=== PATIENT | female | born 1975 | race Caucasian/White ===

== ENCOUNTER 2017-11-04 14:30 | Emergency (ER) | payer SELFPAY ==
[~2017-11-04] VITALS: Ht 154.9 cm; Wt 73.9 kg
[2017-11-04 14:36] VITALS: BP_SYST 120
[2017-11-04] MEDS ORDERED: NACL 0.9% 1,000 ML IV ONE ×2 (14:41→14:45)
--- NOTE | 2017-11-04 14:42 | NUR ---
Patient to ER bed 7 to gown for evaluation. Side rails up. Report given to Regan FLAHERTY.
--- NOTE | 2017-11-04 14:42 | NUR ---
Note paulineana in ED - 11/04/17 at 1503 by ROSEANN Pt c/o neck pain upon awakening and thinks she may have slept wrong. Pt has a hx of "flare ups" of neck pain x 7 years. Pt denies neck trauma or injury, no neuro deficits noted.
[2017-11-04] MEDS ORDERED: KETOROLAC TROMETHAMINE 30 MG VIAL IVP ONE (14:45)
[2017-11-04] MEDS ORDERED: ONDANSETRON HCL 4 MG/2 ML VIAL IVP ONE (14:45)
--- NOTE | 2017-11-04 14:45 | NUR ---
ER at bedside examining patient.
--- NOTE | 2017-11-04 14:47 | NUR ---
Pt presents to ER c/o low back pain 7/10 on pain scale, nausea & vomiting. Pt reports drinking excessively yesterday at a family birthday libertarian. Pt reports drinking "out of the bottle" all night. Pt in no acute distress, speaking full sentences, AOX4, ambulatory, no active vomiting at the moment; pt denies chest pain or sob.
[2017-11-04 15:00] LABS: BILIRUBIN,URINE NEGATIVE (NEGATIVE); BLOOD, URINE NEGATIVE (NEGATIVE); CLARITY/URINE HAZY (CLEAR); COLOR,URINE YELLOW (YELLOW); GLUCOSE,URINE NEGATIVE (NEGATIVE); KETONES,URINE 1+ (NEGATIVE); LEUKOCYTE ESTERASE ,URINE NEGATIVE (NEGATIVE); NITRITE, URINE NEGATIVE (NEGATIVE); PH,URINE 5.5 (5.0-8.0); PROTEIN URINE TRACE (NEGATIVE); UROBILINOGEN,URINE 0.2 (0.2-1.0)
--- NOTE | 2017-11-04 15:04 | NUR ---
Pt medicated as ordered by Dr. Gracia. Pt tolerated well; will continue to monitor.
[2017-11-04 15:08] LABS: BACTERIA,URINE MODERATE /HPF (None Seen); MUCUS,URINE None Seen /LPF (None Seen); RBC,URINE NONE SEEN /HPF (0-3); URINE AMORPHOUS URATE 3+ /HPF (None Seen); WBC,URINE 0-3 /HPF (0-3)
[2017-11-04 15:24] LABS: BASOPHILS % (AUTO) 0.4 % (0.0-2.0); EOSINOPHILS % (AUTO) 0.4 % (0.0-4.0); HEMOGLOBIN 8.4 g/dL (12.0-16.0); LYMPHOCYTES # (AUTO) 1.6 K/uL (1.0-5.5); LYMPHOCYTES % (AUTO) 13.9 % (20.5-51.5); MEAN CORPUSCULAR HEMOGLOBIN 18 pg (27-31); MEAN CORPUSCULAR HGB CONC 30 % (32-36); MEAN CORPUSCULAR VOLUME 60 fL (79.0-98.0); MONOCYTES # (AUTO) 0.5 K/uL (0.0-1.0); MONOCYTES % (AUTO) 4.6 % (1.7-9.3); NEUTROPHILS # (AUTO) 9.3 K/uL (1.8-7.7); NEUTROPHILS % (AUTO) 80.7 % (40.0-70.0); PLATELET COUNT (AUTO) 403 K/uL (130-430); RED CELL DISTRIBUTION WIDTH 18.8 % (9.0-15.0); WHITE BLOOD COUNT (AUTO) 11.4 K/uL (4.8-10.8)
[2017-11-04 15:27] LABS: ANION GAP 12 (5-15); CALCIUM 8.5 mg/dL (8.4-11.0); CHLORIDE 107 mmol/L (98-107); CREATININE 0.78 mg/dL (0.55-1.30); GLUCOSE 102 mg/dL (70-99); POTASSIUM 3.6 mmol/L (3.5-5.1); SODIUM SERUM 141 mmol/L (136-145); UREA NITROGEN, BLOOD 9 mg/dL (8-21)
[2017-11-04 15:28] LABS: GFR AFRICAN AMERICAN 104 mL/min (>90)
[2017-11-04 15:31] LABS: PROTHROMBIN TIME 10.4 SECS (9.5-12.5)
[2017-11-04 15:33] LABS: ALANINE AMINOTRANSFERASE 16 U/L (12-78); ALBUMIN 3.8 g/dL (3.4-4.8); AMYLASE 47 U/L (0-100); ASPARTATE AMINOTRANSFERASE 13 U/L (10-37); LIPASE 92 U/L (73-393); TOTAL BILIRUBIN 0.3 mg/dL (0.0-1.0)
[2017-11-04 15:35] LABS: ALCOHOL, BLOOD 3 mg/dL (<10)
[2017-11-04 15:36] LABS: ACETAMINOPHEN < 1 ug/mL (1-30)
--- NOTE | 2017-11-04 15:45 | NUR ---
Dr. Gracia at bedside speaking with pt discussing lab and diagnostic results.
[2017-11-04 15:54] VITALS: BP_SYST 142
--- NOTE | 2017-11-04 15:54 | NUR ---
Patient given written and verbal discharge instructions and verbalizes understanding. ER MD discussed with patient the results and treatment provided. Patient in stable condition. ID arm band removed. IV catheter removed intact and dressing applied, no active bleeding. Rx of Ranitidine given. Patient educated on pain management and to follow up with PMD. Pain Scale 3/10. Opportunity for questions provided and answered. Medication side effect fact sheet provided.
== END 2017-11-04 15:54 | disposition home or self-care (01) ==
LOC: SED 14:30
DX: K29.20 Alcoholic gastritis without bleeding (principal); F10.129 Alcohol abuse with intoxication, unspecified
CPT/HCPCS: 36415; 71045; 80053; 81000; 82150; 82550; 83690; 84484; 85025; 85610; 85730; 93005; 96361; 96374; 96375; 99285; G0480; G0481; G0482; J1885; J2405; J7030

== ENCOUNTER 2020-06-26 18:13 | Inpatient (IN) | payer MEDICAID, SELFPAY ==
[~2020-06-26] VITALS: Ht 154.9 cm; Wt 61.2 kg
[2020-06-26 18:25] VITALS: BP_SYST 108
[2020-06-26] MEDS ORDERED: ONDANSETRON HCL 4 MG/2 ML VIAL IVP ONE (20:00)
[2020-06-26] MEDS ORDERED: NACL 0.9% 1,000 ML IV ONE (20:00)
[2020-06-26] MEDS ORDERED: MORPHINE 4 MG INJ. 4 MG/ML VIAL IVP ONE (20:00)
[2020-06-26 20:26] LABS: MEAN CORPUSCULAR HGB CONC 28 % (32-36); PLATELET COUNT (AUTO) 319 K/uL (130-430); RED CELL DISTRIBUTION WIDTH 18.8 % (9.0-15.0)
[2020-06-26] MEDS ORDERED: KETOROLAC TROMETHAMINE 15 MG VIAL IVP ONE (20:30)
[2020-06-26 20:31] LABS: HEMATOCRIT 24.8 % (36-48); MEAN CORPUSCULAR HEMOGLOBIN 15 pg (27-31); MEAN CORPUSCULAR VOLUME 53 fL (79.0-98.0); RED BLOOD CELL COUNT(AUTO) 4.65 MIL/uL (4.2-6.2); WHITE BLOOD COUNT (AUTO) 9.1 K/uL (4.8-10.8)
[2020-06-26 20:39] LABS: PROTHROMBIN TIME 9.9 SECS (9.5-12.5)
[2020-06-26 20:40] LABS: BAND % (MANUAL) 0 % (0-6); BASOPHILS % (MANUAL) 0 % (0-2); CALCIUM 8.9 mg/dL (8.4-11.0); CREATININE 0.79 mg/dL (0.55-1.30); EOSINOPHILS % (MANUAL) 0 % (0-7); LYMPHOCYTES % (MANUAL) 22 % (20-46); MONOCYTES % (MANUAL) 6 % (0-11); POTASSIUM 3.7 mmol/L (3.5-5.1)
[2020-06-26 20:47] LABS: TOTAL BILIRUBIN 0.4 mg/dL (0.0-1.0)
[2020-06-26 21:21] LABS: HEMATOCRIT 24.9 % (36-48); MEAN CORPUSCULAR HEMOGLOBIN 15 pg (27-31); MEAN CORPUSCULAR HGB CONC 28 % (32-36); MEAN CORPUSCULAR VOLUME 54 fL (79.0-98.0); PLATELET COUNT (AUTO) 297 K/uL (130-430); RED BLOOD CELL COUNT(AUTO) 4.63 MIL/uL (4.2-6.2); RED CELL DISTRIBUTION WIDTH 18.9 % (9.0-15.0); WHITE BLOOD COUNT (AUTO) 8.6 K/uL (4.8-10.8)
[2020-06-26 21:35] LABS: BAND % (MANUAL) 0 % (0-6); BASOPHILS % (MANUAL) 0 % (0-2); EOSINOPHILS % (MANUAL) 3 % (0-7); LYMPHOCYTES % (MANUAL) 19 % (20-46); MONOCYTES % (MANUAL) 6 % (0-11)
[2020-06-26] MEDS ORDERED: CLINDAMYCIN PHOSPHATE 300 MG/2 ML VIAL IM ONE (22:00)
[2020-06-26] MEDS ORDERED: CLINDAMYCIN PHOSPHATE 300 MG/2 ML VIAL ONE (22:11)
[2020-06-26] MEDS ORDERED: HYDR-3919 PO (23:08)
[2020-06-26] MEDS ORDERED: CLIN150C16 PO (23:08)
[2020-06-26 23:55] VITALS: BP_SYST 118
[2020-06-27] MEDS: KETOROLAC TROMETHAMINE 30 MG VIAL IVP PRN ×3 (01:08→15:11)
[2020-06-27] MEDS: HYDROcodone/ACETAMIN 5-325 MG TAB (NORCO/ VICODIN) PO PRN ×2 (05:35→22:55)
[2020-06-27 08:00] VITALS: BP_SYST 120
[2020-06-27 08:46] LABS: BASOPHILS # (AUTO) 0.1 K/uL (0.0-0.2); BASOPHILS % (AUTO) 1.2 % (0.0-2.0); EOSINOPHILS # (AUTO) 0.2 K/uL (0.0-0.4); EOSINOPHILS % (AUTO) 2.4 % (0.0-4.0); HEMATOCRIT 30.2 % (36-48); LYMPHOCYTES # (AUTO) 2.4 K/uL (1.0-5.5); LYMPHOCYTES % (AUTO) 31.7 % (20.5-51.5); MEAN CORPUSCULAR HEMOGLOBIN 18 pg (27-31); MEAN CORPUSCULAR HGB CONC 30 % (32-36); MEAN CORPUSCULAR VOLUME 60 fL (79.0-98.0); MONOCYTES # (AUTO) 0.7 K/uL (0.0-1.0); MONOCYTES % (AUTO) 9.2 % (1.7-9.3); NEUTROPHILS # (AUTO) 4.2 K/uL (1.8-7.7); NEUTROPHILS % (AUTO) 55.5 % (40.0-70.0); PLATELET COUNT (AUTO) 279 K/uL (130-430); RED BLOOD CELL COUNT(AUTO) 5.05 MIL/uL (4.2-6.2); RED CELL DISTRIBUTION WIDTH 28.4 % (9.0-15.0); WHITE BLOOD COUNT (AUTO) 7.6 K/uL (4.8-10.8)
[2020-06-27 08:53] LABS: CALCIUM 8.4 mg/dL (8.4-11.0); CREATININE 0.7 mg/dL (0.55-1.30); POTASSIUM 3.8 mmol/L (3.5-5.1)
[2020-06-27 08:59] LABS: ALBUMIN 2.7 g/dL (3.4-4.8); TOTAL BILIRUBIN 0.7 mg/dL (0.0-1.0)
[2020-06-27 12:00] VITALS: BP_SYST 129
[2020-06-27 15:13] VITALS: BP_SYST 129
[2020-06-27 16:00] VITALS: BP_SYST 117
[2020-06-27] MEDS: CLINDAMYCIN 600 mg/50mL D5W 50 ML IV SCH (17:00)
[2020-06-27 20:20] VITALS: BP_SYST 122
[2020-06-28 00:39] VITALS: BP_SYST 121
[2020-06-28] MEDS: KETOROLAC TROMETHAMINE 30 MG VIAL IVP PRN ×3 (00:48→14:07)
[2020-06-28] MEDS: CLINDAMYCIN 600 mg/50mL D5W 50 ML IV SCH ×3 (00:49→17:14)
[2020-06-28] MEDS: D5NS 1,000 ML IV SCH ×2 (02:56→21:02)
[2020-06-28 03:16] LABS: BILIRUBIN,URINE NEGATIVE (NEGATIVE); BLOOD, URINE 3+ (NEGATIVE); CLARITY/URINE CLEAR (CLEAR); COLOR,URINE YELLOW (YELLOW); GLUCOSE,URINE NEGATIVE (NEGATIVE); KETONES,URINE NEGATIVE (NEGATIVE); LEUKOCYTE ESTERASE ,URINE NEGATIVE (NEGATIVE); NITRITE, URINE NEGATIVE (NEGATIVE); PROTEIN URINE NEGATIVE (NEGATIVE); UROBILINOGEN,URINE 0.2 (0.2-1.0)
[2020-06-28 03:28] LABS: BACTERIA,URINE RARE /HPF (None Seen); RBC,URINE >100 /HPF (0-3); WBC,URINE 0-3 /HPF (0-3)
[2020-06-28] MEDS ORDERED: AMPICILLIN SODIUM/SULBACTAM NA 3 GM VIAL ONE (04:27)
[2020-06-28] MEDS: AMPICILLIN SODIUM/SULBACTAM NA 3 GM in NS 100 ML IV SCH ×4 (05:06→23:19)
[2020-06-28 07:59] VITALS: BP_SYST 140
[2020-06-28 08:01] LABS: BASOPHILS # (AUTO) 0.1 K/uL (0.0-0.2); BASOPHILS % (AUTO) 1.1 % (0.0-2.0); EOSINOPHILS # (AUTO) 0.2 K/uL (0.0-0.4); EOSINOPHILS % (AUTO) 2.5 % (0.0-4.0); HEMATOCRIT 30.2 % (36-48); LYMPHOCYTES % (AUTO) 23.6 % (20.5-51.5); MEAN CORPUSCULAR HEMOGLOBIN 18 pg (27-31); MEAN CORPUSCULAR HGB CONC 30 % (32-36); MEAN CORPUSCULAR VOLUME 59 fL (79.0-98.0); MONOCYTES # (AUTO) 0.9 K/uL (0.0-1.0); MONOCYTES % (AUTO) 10.2 % (1.7-9.3); NEUTROPHILS # (AUTO) 5.4 K/uL (1.8-7.7); NEUTROPHILS % (AUTO) 62.6 % (40.0-70.0); PLATELET COUNT (AUTO) 300 K/uL (130-430); RED BLOOD CELL COUNT(AUTO) 5.09 MIL/uL (4.2-6.2); RED CELL DISTRIBUTION WIDTH 25.3 % (9.0-15.0); RETICULOCYTE COUNT 1.7 % (0.5-1.5); WHITE BLOOD COUNT (AUTO) 8.7 K/uL (4.8-10.8)
[2020-06-28 08:23] LABS: TOTAL IRON BIND. CAPACITY 338 ug/dL (250-450)
[2020-06-28] MEDS: SOD FERRIC GLUC COMPLEX/SUC 125 MG in NS 100 ML IV SCH (11:13)
[2020-06-28 11:24] VITALS: BP_SYST 113
[2020-06-28 11:25] VITALS: BP_SYST 99
[2020-06-28] MEDS ORDERED: MILK OF MAGNESIA 30 ML UDC PO ONE (13:45)
[2020-06-28 15:13] VITALS: BP_SYST 153
[2020-06-28] MEDS ORDERED: MAGNESIUM CITRATE 300 ML ORAL SOLUTION PO ONE ×2 (18:30)
[2020-06-28 21:00] VITALS: BP_SYST 132
[2020-06-28] MEDS: HYDROcodone/ACETAMIN 5-325 MG TAB (NORCO/ VICODIN) PO PRN (23:22)
[2020-06-29 00:46] VITALS: BP_SYST 127
[2020-06-29] MEDS: CLINDAMYCIN 600 mg/50mL D5W 50 ML IV SCH ×3 (01:21→16:25)
[2020-06-29] MEDS: AMPICILLIN SODIUM/SULBACTAM NA 3 GM in NS 100 ML IV SCH ×4 (05:07→23:17)
[2020-06-29 06:06] LABS: FOLATE (FOLIC ACID) 6.3 ng/mL (>3.0)
[2020-06-29 06:21] LABS: BASOPHILS # (AUTO) 0.1 K/uL (0.0-0.2); BASOPHILS % (AUTO) 1.2 % (0.0-2.0); EOSINOPHILS # (AUTO) 0.3 K/uL (0.0-0.4); EOSINOPHILS % (AUTO) 2.9 % (0.0-4.0); HEMATOCRIT 30.8 % (36-48); HEMOGLOBIN 8.8 g/dL (12.0-16.0); LYMPHOCYTES # (AUTO) 2.2 K/uL (1.0-5.5); LYMPHOCYTES % (AUTO) 23.7 % (20.5-51.5); MEAN CORPUSCULAR HEMOGLOBIN 17 pg (27-31); MEAN CORPUSCULAR HGB CONC 29 % (32-36); MEAN CORPUSCULAR VOLUME 60 fL (79.0-98.0); MONOCYTES # (AUTO) 0.7 K/uL (0.0-1.0); MONOCYTES % (AUTO) 8.1 % (1.7-9.3); NEUTROPHILS # (AUTO) 5.9 K/uL (1.8-7.7); PLATELET COUNT (AUTO) 302 K/uL (130-430); RED CELL DISTRIBUTION WIDTH 29.1 % (9.0-15.0); WHITE BLOOD COUNT (AUTO) 9.2 K/uL (4.8-10.8)
[2020-06-29] MEDS ORDERED: MIDAZOLAM HCL 5 MG/5 ML VIAL ONE (07:23)
[2020-06-29] MEDS ORDERED: SIMETHICONE 40 MG/0.6 ML ML ONE (07:23)
[2020-06-29] MEDS ORDERED: MEPERIDINE 100 MG INJ. 100 MG/ML VIAL ONE (07:23)
[2020-06-29 07:50] VITALS: BP_SYST 127
[2020-06-29 07:59] LABS: NEUTROPHILS % (AUTO) 64.1 % (40.0-70.0)
[2020-06-29] MEDS: SOD FERRIC GLUC COMPLEX/SUC 125 MG in NS 100 ML IV SCH (10:41)
[2020-06-29 11:23] VITALS: BP_SYST 111
[2020-06-29 15:26] VITALS: BP_SYST 128
[2020-06-29] MEDS: D5NS 1,000 ML IV SCH (16:27)
[2020-06-29] MEDS: KETOROLAC TROMETHAMINE 30 MG VIAL IVP PRN (16:32)
[2020-06-29 20:00] VITALS: BP_SYST 119
[2020-06-30] VITALS: BP_SYST 126
[2020-06-30] MEDS: CLINDAMYCIN 600 mg/50mL D5W 50 ML IV SCH ×3 (00:09→16:40)
[2020-06-30] MEDS: D5NS 1,000 ML IV SCH ×2 (00:17→21:37)
[2020-06-30] MEDS: HYDROcodone/ACETAMIN 5-325 MG TAB (NORCO/ VICODIN) PO PRN ×3 (00:17→16:39)
[2020-06-30] MEDS: AMPICILLIN SODIUM/SULBACTAM NA 3 GM in NS 100 ML IV SCH ×4 (05:49→23:45)
[2020-06-30 06:02] LABS: BASOPHILS # (AUTO) 0.1 K/uL (0.0-0.2); BASOPHILS % (AUTO) 1.4 % (0.0-2.0); EOSINOPHILS # (AUTO) 0.2 K/uL (0.0-0.4); EOSINOPHILS % (AUTO) 2.4 % (0.0-4.0); HEMATOCRIT 30.7 % (36-48); HEMOGLOBIN 9.1 g/dL (12.0-16.0); LYMPHOCYTES # (AUTO) 2.2 K/uL (1.0-5.5); LYMPHOCYTES % (AUTO) 25.7 % (20.5-51.5); MEAN CORPUSCULAR HEMOGLOBIN 18 pg (27-31); MEAN CORPUSCULAR HGB CONC 30 % (32-36); MEAN CORPUSCULAR VOLUME 60 fL (79.0-98.0); MONOCYTES # (AUTO) 0.6 K/uL (0.0-1.0); MONOCYTES % (AUTO) 7.5 % (1.7-9.3); NEUTROPHILS # (AUTO) 5.4 K/uL (1.8-7.7); PLATELET COUNT (AUTO) 278 K/uL (130-430); RED BLOOD CELL COUNT(AUTO) 5.11 MIL/uL (4.2-6.2); RED CELL DISTRIBUTION WIDTH 29.4 % (9.0-15.0); WHITE BLOOD COUNT (AUTO) 8.6 K/uL (4.8-10.8)
[2020-06-30 06:31] LABS: CALCIUM 8.7 mg/dL (8.4-11.0); CREATININE 0.74 mg/dL (0.55-1.30); POTASSIUM 3.8 mmol/L (3.5-5.1)
[2020-06-30 08:00] VITALS: BP_SYST 140
[2020-06-30] MEDS: SOD FERRIC GLUC COMPLEX/SUC 125 MG in NS 100 ML IV SCH (10:32)
[2020-06-30 12:44] VITALS: BP_SYST 133
[2020-06-30 15:23] VITALS: BP_SYST 130
[2020-06-30 16:00] VITALS: BP_SYST 130
[2020-06-30 20:00] VITALS: BP_SYST 142
[2020-07-01] MEDS: CLINDAMYCIN 600 mg/50mL D5W 50 ML IV SCH ×3 (00:39→16:41)
[2020-07-01 00:43] VITALS: BP_SYST 131
[2020-07-01] MEDS ORDERED: MILK OF MAGNESIA 30 ML UDC PO ONE (01:00)
[2020-07-01] MEDS ORDERED: MILK OF MAGNESIA 30 ML UDC ONE (02:05)
[2020-07-01] MEDS: HYDROcodone/ACETAMIN 5-325 MG TAB (NORCO/ VICODIN) PO PRN (04:13)
[2020-07-01] MEDS: AMPICILLIN SODIUM/SULBACTAM NA 3 GM in NS 100 ML IV SCH ×4 (05:19→23:30)
[2020-07-01 07:17] LABS: BASOPHILS # (AUTO) 0.1 K/uL (0.0-0.2); BASOPHILS % (AUTO) 1.6 % (0.0-2.0); EOSINOPHILS # (AUTO) 0.2 K/uL (0.0-0.4); EOSINOPHILS % (AUTO) 2.3 % (0.0-4.0); HEMOGLOBIN 9.4 g/dL (12.0-16.0); LYMPHOCYTES # (AUTO) 2.4 K/uL (1.0-5.5); LYMPHOCYTES % (AUTO) 30.9 % (20.5-51.5); MEAN CORPUSCULAR HEMOGLOBIN 18 pg (27-31); MEAN CORPUSCULAR HGB CONC 29 % (32-36); MEAN CORPUSCULAR VOLUME 60 fL (79.0-98.0); MONOCYTES # (AUTO) 0.6 K/uL (0.0-1.0); MONOCYTES % (AUTO) 7.4 % (1.7-9.3); NEUTROPHILS # (AUTO) 4.4 K/uL (1.8-7.7); NEUTROPHILS % (AUTO) 57.8 % (40.0-70.0); PLATELET COUNT (AUTO) 286 K/uL (130-430); RED BLOOD CELL COUNT(AUTO) 5.32 MIL/uL (4.2-6.2); RED CELL DISTRIBUTION WIDTH 30.9 % (9.0-15.0); WHITE BLOOD COUNT (AUTO) 7.7 K/uL (4.8-10.8)
[2020-07-01 08:00] VITALS: BP_SYST 122; BP_SYST 127
[2020-07-01] MEDS: predniSONE 10 MG TABLET PO SCH (09:44)
[2020-07-01] MEDS: SOD FERRIC GLUC COMPLEX/SUC 125 MG in NS 100 ML IV SCH (11:13)
[2020-07-01 12:00] VITALS: BP_SYST 118
[2020-07-01 16:00] VITALS: BP_SYST 113
[2020-07-01] MEDS: D5NS 1,000 ML IV SCH (16:41)
[2020-07-01 19:57] VITALS: BP_SYST 121
[2020-07-01] MEDS: KETOROLAC TROMETHAMINE 30 MG VIAL IVP PRN (23:29)
[2020-07-02 00:30] VITALS: BP_SYST 128
[2020-07-02] MEDS: CLINDAMYCIN 600 mg/50mL D5W 50 ML IV SCH ×3 (01:16→16:19)
[2020-07-02] MEDS: D5NS 1,000 ML IV SCH ×2 (04:58→23:37)
[2020-07-02] MEDS: AMPICILLIN SODIUM/SULBACTAM NA 3 GM in NS 100 ML IV SCH ×4 (05:01→23:40)
[2020-07-02 06:24] LABS: BASOPHILS # (AUTO) 0.1 K/uL (0.0-0.2); BASOPHILS % (AUTO) 1.1 % (0.0-2.0); EOSINOPHILS # (AUTO) 0.1 K/uL (0.0-0.4); EOSINOPHILS % (AUTO) 1.3 % (0.0-4.0); HEMATOCRIT 31.3 % (36-48); HEMOGLOBIN 9.4 g/dL (12.0-16.0); LYMPHOCYTES # (AUTO) 2.1 K/uL (1.0-5.5); LYMPHOCYTES % (AUTO) 22.2 % (20.5-51.5); MEAN CORPUSCULAR HEMOGLOBIN 18 pg (27-31); MEAN CORPUSCULAR HGB CONC 30 % (32-36); MEAN CORPUSCULAR VOLUME 61 fL (79.0-98.0); MONOCYTES # (AUTO) 0.8 K/uL (0.0-1.0); MONOCYTES % (AUTO) 8.6 % (1.7-9.3); NEUTROPHILS # (AUTO) 6.4 K/uL (1.8-7.7); NEUTROPHILS % (AUTO) 66.8 % (40.0-70.0); PLATELET COUNT (AUTO) 271 K/uL (130-430); RED BLOOD CELL COUNT(AUTO) 5.15 MIL/uL (4.2-6.2); RED CELL DISTRIBUTION WIDTH 31.4 % (9.0-15.0); WHITE BLOOD COUNT (AUTO) 9.7 K/uL (4.8-10.8)
[2020-07-02 06:58] LABS: CALCIUM 8.7 mg/dL (8.4-11.0); CREATININE 0.82 mg/dL (0.55-1.30); POTASSIUM 3.9 mmol/L (3.5-5.1)
[2020-07-02 07:15] VITALS: BP_SYST 135
[2020-07-02] MEDS: predniSONE 10 MG TABLET PO SCH (09:27)
[2020-07-02] MEDS: SOD FERRIC GLUC COMPLEX/SUC 125 MG in NS 100 ML IV SCH (11:19)
[2020-07-02 12:00] VITALS: BP_SYST 124
[2020-07-02 16:00] VITALS: BP_SYST 128
[2020-07-02 19:00] VITALS: BP_SYST 140
[2020-07-02 20:00] VITALS: BP_SYST 140
[2020-07-03] VITALS: BP_SYST 135
[2020-07-03] MEDS: CLINDAMYCIN 600 mg/50mL D5W 50 ML IV SCH ×2 (01:13→09:10)
[2020-07-03] MEDS: AMPICILLIN SODIUM/SULBACTAM NA 3 GM in NS 100 ML IV SCH ×2 (06:55→13:12)
[2020-07-03] MEDS: predniSONE 10 MG TABLET PO SCH (09:10)
[2020-07-03] MEDS: SOD FERRIC GLUC COMPLEX/SUC 125 MG in NS 100 ML IV SCH (10:38)
[2020-07-03 11:20] VITALS: BP_SYST 138
[2020-07-03 12:56] VITALS: BP_SYST 123
== END 2020-07-03 16:50 | disposition home or self-care (01) | DRG 351 ==
LOC: SED 18:13 → SMU 22:35
PROVIDERS: ADMIT Internal Medicine; ATTEND Internal Medicine
PROC: 30233N1 Transfusion of Nonautologous Red Blood Cells into Peripheral Vein, Percutaneous Approach (ICD-10-PCS; principal; 2020-06-27)
DX: M60.88 Other myositis, other site (principal); E43 Unspecified severe protein-calorie malnutrition; D50.9 Iron deficiency anemia, unspecified; K01.1 Impacted teeth; R63.4 Abnormal weight loss; K59.00 Constipation, unspecified; Z20.822 Contact with and (suspected) exposure to COVID-19; Z79.1 Long term (current) use of non-steroidal anti-inflammatories (NSAID); Z79.891 Long term (current) use of opiate analgesic; Z79.899 Other long term (current) drug therapy; Z68.25 Body mass index [BMI] 25.0-25.9, adult
CPT/HCPCS: 36415; 70487; 71045; 74018; 76376; 76536-TC; 80048; 80053; 80061; 81000-TC; 82272; 82607; 82728; 82746; 83010; 83540-TC; 83550-TC; 83690-TC; 84703; 85007; 85025; 85027; 85044-TC; 85610-TC; 86886; 86900; 86901; 86920; 87040-TC; 96361; 96372; 96374; J0295; J1885; J2175; J2250; J2270; J2405; J2916; J3490; J7030; J7042; J7050; J7512; P9021; Q9967

== ENCOUNTER 2021-02-03 14:13 | Emergency (ER) | payer MEDICAID, SELFPAY ==
[~2021-02-03] VITALS: Ht 154.9 cm; Wt 56.7 kg
[2021-02-03 14:13] VITALS: BP_SYST 143
[~2021-02-03 14:13] MED LIST: HYDR-3919 PO
--- NOTE | 2021-02-03 14:13 | NUR ---
BROUGHT TO TRIAGE TENT AND TRIAGED. AWAITING ER BED AVAILABILITY
--- NOTE | 2021-02-03 14:50 | NUR ---
PT STATES THAT SHE TESTED + FOR COVID YESTERDAY AT [facility], PT STATES THEY GAVE HER TESSALON PERLES, DECADRON AND TRAMADOL. PT STATES THAT THESE MEDS DO NOT WORK FOR HER. STILL WITH COUGH.
--- NOTE | 2021-02-03 14:51 | NUR ---
DR PEARL OUT TO TENT FOR EVALUATION
--- NOTE | 2021-02-03 15:12 | NUR ---
PT MEDICATED ORDERED, RECEIVING BREATHING TREATMENT AT THIS TIME.
[2021-02-03] MEDS ORDERED: ZIT250 PO (15:14)
[2021-02-03] MEDS ORDERED: IBUP-1969 PO (15:14)
[2021-02-03] MEDS ORDERED: AMOX-426 PO (15:14)
[2021-02-03] MEDS ORDERED: ALBMDI INH (15:14)
[2021-02-03] MEDS ORDERED: DEXAMETHASONE SOD PHOSPHATE 10 MG/ML VIAL IM ONE (15:15)
[2021-02-03] MEDS ORDERED: KETOROLAC TROMETHAMINE 15 MG VIAL IM ONE (15:15)
[2021-02-03] MEDS ORDERED: DEXAMETHASONE SOD PHOSPHATE 4 MG/ML VIAL PO ONE (15:15)
[2021-02-03] MEDS ORDERED: ALBUTEROL SULFATE 0.083% 2.5 MG/3 ML VIAL.NEB INH ONE (15:15)
[2021-02-03] MEDS ORDERED: IPRATROPIUM BROM 0.5 MG/2.5 ML VIAL.NEB (ATROVENT) INH ONE (15:15)
[2021-02-03] MEDS ORDERED: ALBUTEROL MDI INHALATION 8 GM INH INH ONE (15:15)
[2021-02-03] MEDS ORDERED: DECADRON 4 MG TABLET ONE (15:17)
--- NOTE | 2021-02-03 15:51 | NUR ---
Patient given written and verbal discharge instructions and verbalizes understanding. ER MD discussed with patient the results and treatment provided. Patient in stable condition. ID arm band removed. Rx of ALBUTEROL, AUGMENTIN, IBUPROFEN, ZITHROMAX given. Patient educated on pain management and to follow up with PMD. Pain Scale 0/10. Opportunity for questions provided and answered. Medication side effect fact sheet provided.
== END 2021-02-03 15:51 | disposition home or self-care (01) ==
LOC: SED 14:13
DX: U07.1 COVID-19 (principal); Z79.899 Other long term (current) drug therapy
CPT/HCPCS: 94640; 96372; 99283; J1100; J1885; J7613; J8540

== ENCOUNTER 2021-05-02 19:29 | Observation (INO) | payer MEDICAID, SELFPAY ==
[~2021-05-02] VITALS: Ht 154.9 cm; Wt 68.0 kg
[~2021-05-02 19:29] MED LIST changes: +ALBMDI INH; +AMOX-426 PO; +IBUP-1969 PO; +ZIT250 PO
[2021-05-02 20:17] VITALS: BP_SYST 110
[2021-05-02 23:02] LABS: BASOPHILS # (AUTO) 0.1 K/uL (0.0-0.2); BASOPHILS % (AUTO) 1.7 % (0.0-2.0); EOSINOPHILS # (AUTO) 0.2 K/uL (0.0-0.4); EOSINOPHILS % (AUTO) 3.2 % (0.0-4.0); LYMPHOCYTES # (AUTO) 1.3 K/uL (1.0-5.5); MEAN CORPUSCULAR HEMOGLOBIN 17 pg (27-31); MEAN CORPUSCULAR HGB CONC 29 % (32-36); MEAN CORPUSCULAR VOLUME 59 fL (79.0-98.0); MONOCYTES # (AUTO) 0.5 K/uL (0.0-1.0); MONOCYTES % (AUTO) 9.7 % (1.7-9.3); NEUTROPHILS # (AUTO) 2.9 K/uL (1.8-7.7); NEUTROPHILS % (AUTO) 59.4 % (40.0-70.0); PLATELET COUNT (AUTO) 391 K/uL (130-430); RED BLOOD CELL COUNT(AUTO) 3.39 MIL/uL (4.2-6.2); RED CELL DISTRIBUTION WIDTH 18.6 % (9.0-15.0); WHITE BLOOD COUNT (AUTO) 4.9 K/uL (4.8-10.8)
[2021-05-02 23:05] LABS: HEMATOCRIT 19.9 % (36-48); HEMOGLOBIN 5.9 g/dL (12.0-16.0)
[2021-05-02] MEDS ORDERED: ACETAMINOPHEN 325 MG TABLET PO ONE (23:15)
[2021-05-02] MEDS ORDERED: DIPHENHYDRAMINE HCL 12.5 MG/5 ML UDC NG ONE (23:15)
[2021-05-02 23:23] LABS: CREATININE 0.64 mg/dL (0.55-1.30); POTASSIUM 3.9 mmol/L (3.5-5.1)
--- NOTE | 2021-05-02 23:24 | NUR ---
Patient to ER bed 01 to gown for evaluation. Side rails up. Report given to KRYSTINA JAIMES
--- NOTE | 2021-05-02 23:34 | NUR ---
BLAS Parson at bedside examining patient.
[2021-05-02 23:36] LABS: ALBUMIN 3.2 g/dL (3.4-4.8); TOTAL BILIRUBIN 0.1 mg/dL (0.0-1.0)
--- NOTE | 2021-05-03 00:01 | NUR ---
18G PERIPHERAL IV STARTED IN LEFT AC STARTED BY RN.
--- NOTE | 2021-05-03 01:15 | NUR ---
BLOOD CONSENT AND PAPERWORK SIGNED AND SENT TO BLOOD BANK.
--- NOTE | 2021-05-03 02:59 | NUR ---
NOTIFIED OF PT BP. NO NEW ORDERS AT THIS TIME.
--- NOTE | 2021-05-03 03:02 | NUR ---
BLOOD BANK CALLED TO CHECK PROGRESS OF BLOOD. STATES BLOOD WILL BE READY IN 15MIN
--- NOTE | 2021-05-03 03:45 | NUR ---
Consent signed per PT agreeing to administration of blood. Blood has been type and crossmatched. Blood sent from blood bank. Information on unit of blood checked against patient wristband at bedside by two nurses. All information matches. Patient or responsible libertarian informed of potential complications associated with blood transfusion. Informed of possible transfusion reaction symptoms. Aware of need to notify nurse at once of itching, shortness of breath, flushing, feeling of impending doom, or other symptoms not previously present. Vital signs taken within 5 minutes prior to initiation of transfusion. RN will remain with patient for first 15 minutes of transfusion at which time vital signs will be re-assessed.
[2021-05-03] MEDS ORDERED: ACETAMINOPHEN 325 MG TABLET ONE (03:53)
[2021-05-03] MEDS ORDERED: DIPHENHYDRAMINE HCL 12.5 MG/5 ML UDC ONE (03:53)
--- NOTE | 2021-05-03 04:03 | NUR ---
AFTER 15MIN OF BLOOD TRANSFUSION, NO REACTION NOTED. RATE INCREASED TO 150ML/HR. PT IS TOLERATING WELL.
--- NOTE | 2021-05-03 05:10 | NUR ---
BLOOD STILL INFUSING. PT TOLERATING WELL. WARM BLANKET GIVEN. WILL CONTINUE TO MONITOR
--- NOTE | 2021-05-03 05:34 | NUR ---
1ST UNIT OF BLOOD FINISHED. NO REACTIONS NOTED. PT TOLERATED WELL. WILL RECIEVE SECOND UNIT PER PROTOCOL
--- NOTE | 2021-05-03 05:45 | NUR ---
MD AT BEDSIDE PERFORMING PELVIC EXAM. RN IN .
--- NOTE | 2021-05-03 06:00 | NUR ---
Consent signed per PT agreeing to administration of blood. Blood has been type and crossmatched. Blood sent from blood bank. Information on unit of blood checked against patient wristband at bedside by two nurses. All information matches. Patient or responsible green party informed of potential complications associated with blood transfusion. Informed of possible transfusion reaction symptoms. Aware of need to notify nurse at once of itching, shortness of breath, flushing, feeling of impending doom, or other symptoms not previously present. Vital signs taken within 5 minutes prior to initiation of transfusion. RN will remain with patient for first 15 minutes of transfusion at which time vital signs will be re-assessed.
--- NOTE | 2021-05-03 06:15 | NUR ---
1ST 15 MIN OF SECOND UNIT COMPLETE. NO REACTION NOTED. VITALS STABLE. RATE INCREASED TO 160ML/HR
--- NOTE | 2021-05-03 07:14 | NUR ---
REPORT TO KRYSTINA CLARK
--- NOTE | 2021-05-03 08:26 | NUR ---
SECOND UNIT OF BLOOD COMPLETED. PT TOLERATED WELL.NO ADVERSE REACTIONS REPORTED BED TO LOWEST POSITION. SIDERAILS UP X2. WILL CONTINUE TO MONITOR
--- NOTE | 2021-05-03 09:27 | NUR ---
PT RESTING COMFORTABLY. AWAITS FOR DISPOSITION. NO DISTRESS NOTED.
--- NOTE | 2021-05-03 09:46 | NUR ---
PORTABLE US BEING DONE AT BEDSIDE
[2021-05-03 10:11] LABS: BASOPHILS # (AUTO) 0.1 K/uL (0.0-0.2); BASOPHILS % (AUTO) 2.1 % (0.0-2.0); EOSINOPHILS # (AUTO) 0.2 K/uL (0.0-0.4); EOSINOPHILS % (AUTO) 3.7 % (0.0-4.0); HEMATOCRIT 26.1 % (36-48); LYMPHOCYTES # (AUTO) 1.4 K/uL (1.0-5.5); LYMPHOCYTES % (AUTO) 30.2 % (20.5-51.5); MEAN CORPUSCULAR HEMOGLOBIN 20 pg (27-31); MEAN CORPUSCULAR HGB CONC 31 % (32-36); MEAN CORPUSCULAR VOLUME 65 fL (79.0-98.0); MONOCYTES # (AUTO) 0.7 K/uL (0.0-1.0); MONOCYTES % (AUTO) 13.8 % (1.7-9.3); NEUTROPHILS # (AUTO) 2.4 K/uL (1.8-7.7); NEUTROPHILS % (AUTO) 50.2 % (40.0-70.0); PLATELET COUNT (AUTO) 316 K/uL (130-430); RED BLOOD CELL COUNT(AUTO) 4.02 MIL/uL (4.2-6.2); WHITE BLOOD COUNT (AUTO) 4.8 K/uL (4.8-10.8)
--- NOTE | 2021-05-03 11:23 | NUR ---
Medication reconciliation completed patient is not taking any medications. with information provided by patient .
--- NOTE | 2021-05-03 11:24 | NUR ---
Patient's code status is full code. paperwork completed and placed in chart.
--- NOTE | 2021-05-03 12:14 | NUR ---
PT RECEIVED REGULAR LUNCH, EATING WELL.
--- NOTE | 2021-05-03 12:24 | NUR ---
PATIENT AWAKE ALERT AND ORIENTED. NO DISTRESS NOTED. EATING PER ORDERS. AWAITS FOR ROOM. BED TO LOWEST POSITION. SIDERAILS UP X2
[2021-05-03 12:41] LABS: BILIRUBIN,URINE NEGATIVE (NEGATIVE); BLOOD, URINE 2+ (NEGATIVE); COLOR,URINE YELLOW (YELLOW); GLUCOSE,URINE NEGATIVE (NEGATIVE); KETONES,URINE NEGATIVE (NEGATIVE); LEUKOCYTE ESTERASE ,URINE NEGATIVE (NEGATIVE); NITRITE, URINE POSITIVE (NEGATIVE); PROTEIN URINE NEGATIVE (NEGATIVE); UROBILINOGEN,URINE 0.2 (0.2-1.0)
[2021-05-03 12:46] LABS: CLARITY/URINE SLIGHTLY CLOUDY (CLEAR)
[2021-05-03 12:54] LABS: BACTERIA,URINE MANY /HPF (None Seen); WBC,URINE 0-3 /HPF (0-3)
--- NOTE | 2021-05-03 13:30 | NUR ---
Patient will be admitted to care of DR Salmeron. Admitted to MS unit. Will go to room 106b. Belongings list completed. Complete and up to date summary report printed. SBAR report to be given at bedside with opportunity for questions.
[2021-05-03 13:40] VITALS: BP_SYST 100
--- NOTE | 2021-05-03 13:40 | NUR ---
ADMISSION NOTE Received patient from ER via gurney. Patient admitted with diagnosis of symptomatic anemia. Patient is awake, alert, oriented X 4. Patient oriented to hospital room, call light, toileting, pain management and safety-teach back done. Patient informed that her room number is 106B. Personal belongings checked and Belongings List documented. Call light within reach.
[2021-05-03 16:04] VITALS: BP_SYST 110
[2021-05-03] MEDS ORDERED: ACETAMINOPHEN 325 MG TABLET PO PRN (18:45)
--- NOTE | 2021-05-03 19:15 | NUR ---
OPENING NOTES ENDORSED CARE FROM DAY SHIFT. PT IS LYING IN BED ON PHONE. NO APPARENT DISTRESS NOTED. SAFETY PRECAUTIONS IN PLACE. EDUCATED ON HOW TO USE THE CALL LIGHT. BED IN LOWEST POSITION
[2021-05-03] MEDS ORDERED: cefTRIAXone 1 GM in D5W 50 ML IV SCH (19:30)
--- NOTE | 2021-05-03 19:30 | NUR ---
CLOSING NOTES: PATIENT RESTING IN BED. NO S/S OF ACUTE DISTRESS NOTED. FALL AND SAFETY MEASURES PROVIDED. CALL LIGHT WITHIN REACH. ENDORSED TO MEDICAL OFFICE REPRESENTATIVE RN.
[2021-05-03 20:00] VITALS: BP_SYST 101
--- NOTE | 2021-05-03 23:05 | NUR ---
ROUNDING CHECKED ON PT. PT IS SEMI FOWLERS IN BED EATING. PT DENIES NEEDING ANYTHING AT THIS TIME. NO APPARENT DISTRESS NOTED AT THIS TIME
[2021-05-04] VITALS (7 sets, daily range): BP systolic 105–127
--- NOTE | 2021-05-04 07:03 | NUR ---
CLOSING NOTES ENDORSED CARE TO DAY SHIFT. PT IS IN BED SLEEPING. NO APPARENT DISTRESS NOTED AT THIS TIME. FALL AND SAFETY PRECAUTIONS IN PLACE. BED IN LOWEST POSITION WITH CALL LIGHT WITHIN REACH.
[2021-05-04] MEDS ORDERED: AMOX-426 PO (12:13)
[2021-05-04] MEDS ORDERED: ferrous (12:14)
[2021-05-04] MEDS ORDERED: FOLI-43 PO (12:17)
[2021-05-04] MEDS ORDERED: ferrous sulfate PO (12:17)
--- NOTE | 2021-05-10 11:31 | NUR ---
IV ADMINISTRATION END TIME (Observation Patients ONLY): Late Entry IV infusion of Rocephin started at 21:29 and ended at 22:00 on 05/03/21
== END 2021-05-04 16:40 | disposition home or self-care (01) ==
LOC: SED 19:29 → SMU 05-03 11:09
PROVIDERS: ADMIT Family Medicine; ATTEND Family Medicine
DX: N93.9 Abnormal uterine and vaginal bleeding, unspecified (principal); Z20.822 Contact with and (suspected) exposure to COVID-19; D64.9 Anemia, unspecified; N39.0 Urinary tract infection, site not specified; R42 Dizziness and giddiness; R53.1 Weakness; I95.9 Hypotension, unspecified; Z79.899 Other long term (current) drug therapy
CPT/HCPCS: 36415; 36430; 76856; 80053; 81000; 84702; 85025 ×2; 86886; 86900; 86901; 86920; 87040; 87086; 87426; 96365; 99284; G0378 ×2; J0696; J7060; P9021; 99285